=== PATIENT | male | born 1975 | race Caucasian/White ===

== ENCOUNTER 2017-05-31 12:57 | Emergency (ER) | payer BC ==
[~2017-05-31] VITALS: Wt 79.5 kg
[2017-05-31 12:59] VITALS: Wt 79.5 kg
[2017-05-31] MEDS ORDERED: LIDOCAINE 1% (MDV) 20 ML INJ SC ONE (13:30)
[2017-05-31] MEDS ORDERED: IBUP-1542 PO (14:39)
--- NOTE | 2017-05-31 15:11 | ERD ---
ER Documentation Chief Complaint Chief Complaint avulsion to r. forearm from saw. pms intact. HPI 41-year-old male present ED for laceration of his right forearm. Patient stated he was doing home improvement using a saw. The saw hit something hard and kicked back, hitting his right forearm. No active bleeding, minimal amount of blood loss. Patient is able to move his hand and wrist distal to the injury. His last tetanus was 3-4 years ago. Denies any other injuries. ROS All systems reviewed and are negative except as per history of present illness. Medications Home Meds Active Scripts Ibuprofen* (Motrin*) 600 Mg Tab, 600 MG PO Q6H Y for PAIN AND OR ELEVATED TEMP, #30 TAB Prov:STACEY CARDENAS ACID CORRECTION HAND 05/31/17 Allergies Allergies: Coded Allergies: No Known Allergy (Unverified , 05/31/17) PMhx/Soc Medical and Surgical Hx: pt denies Medical Hx, pt denies Surgical Hx Hx Alcohol Use: Yes (OCCASSIONAL) Hx Substance Use: No Hx Tobacco Use: Yes (6CIG/DAY) Smoking Status: Current every day smoker Physical Exam Vitals Vital Signs Date Time Temp Pulse Resp B/P Pulse Ox O2 Delivery O2 Flow Rate FiO2 05/31/17 12:59 98.0 90 20 139/100 97 Physical Exam General: Patient is well-developed. Awake, alert, and conversant, in no apparent distress Skin: Warm and dry Head: Normocephalic, atraumatic without palpable deformities Eyes: Pupils equal, round, and reactive to light. Extraocular movements intact. No periorbital ecchymosis or step-off Chest: No surface trauma. Nontender without crepitus or deformity. No palpable subcutaneous air. Lungs have good tidal volume, lungs clear to auscultate bilaterally Heart: Regular rate and rhythm. No murmur, rub, or gallop Extremities: A centimeter long linear laceration on the dorsal aspect of the right forearm. The wound is gaping, minimal amount of fascia or muscle injury. Full range of motion without limitation or pain. Good strength in all extremities. Sensation to light touch intact. All peripheral pulses are intact and equal Neuro: Alert and oriented 4, GCS 15, cranial nerves II through XII intact. Motor and sensory exam is nonfocal. Reflexes are symmetric Results 24 hrs Current Medications Medications (Trade) Dose Ordered Sig/Jovanna Route PRN Reason Start Time Stop Time Status Last Admin Dose Admin Lidocaine (Xylocaine 1% (Mdv) 20 ml) 20 ml ONCE ONCE SC 05/31/17 13:30 05/31/17 13:31 DC Procedures/[facility] Procedure note: laceration repair Verbal consent was obtained for the laceration repair. The wound was copiously irrigated. Local anesthesia was provided using 1% lidocaine. After appropriate anesthesia, the area was explored under a bloodless field. Full range of motion of the joint above and below the injury was noted. No foreign body, deep structure or tendon involvement was noted. Full range of motion distal to the injury, I doubt tendon injury. Closure was achieved with 7 interrupted sutures using 3-0 Ethilon. Good cosmetic and hemostatic results were obtained with the closure. The wound was then cleaned and a dressing was applied. TDap not given today, patient is still up-to-date. Patient advised to follow-up in the ED in 2 days for wound check. Departure Diagnosis: Primary Impression: Laceration Condition: Stable Patient Instructions: Laceration, All Referrals: [facility] YOU HAVE RECEIVED A MEDICAL SCREENING EXAM AND THE RESULTS INDICATE THAT YOU DO NOT HAVE A CONDITION THAT REQUIRES URGENT TREATMENT IN THE EMERGENCY DEPARTMENT. FURTHER EVALUATION AND TREATMENT OF YOUR CONDITION CAN WAIT UNTIL YOU ARE SEEN IN YOUR DOCTORS OFFICE WITHIN THE NEXT 1-2 DAYS. IT IS YOUR RESPONSIBILITY TO MAKE AN APPOINTMENT FOR FOLOW-UP CARE. IF YOU HAVE A PRIMARY DOCTOR --you should call your primary doctor and schedule an appointment IF YOU DO NOT HAVE A PRIMARY DOCTOR YOU CAN CALL OUR PHYSICIAN REFERRAL HOTLINE AT IF YOU CAN NOT AFFORD TO SEE A PHYSICIAN YOU CAN CHOSE FROM THE FOLLOWING [facility] [address] [facility] [facility] [address] [facility] [facility] [address] [facility]. [facility] [address] [facility] [address] [facility]. [facility]. [address] Additional Instructions: Return to this facility in 2 DAYS for a follow-up exam.Return sooner if your condition worsens. Follow up with your physician to remove the stitches:For Face wounds 5-7 days.For Elsewhere on the body 7-10 days. STACEY CARDENAS NP May 31, 2017 15:11
== END 2017-05-31 15:05 | disposition home or self-care (01) ==
LOC: FTE 12:57
DX: S51.811A Laceration without foreign body of right forearm, initial encounter (principal); F17.210 Nicotine dependence, cigarettes, uncomplicated; W27.0XXA Contact with workbench tool, initial encounter; Y92.009 Unspecified place in unspecified non-institutional (private) residence as the place of occurrence of the external cause